=== PATIENT | male | born 1980 | race Caucasian/White ===

== ENCOUNTER 2025-03-14 06:43 | Day surgery (SDC) | payer OTHER, SELFPAY ==
--- NOTE | 2025-03-14 | PATH_ITS ---
[facility] Accession Number: [id number] No. of containers..02 Tissue . 01 Material submitted: . PART A: colon - SIGMOID POLYP PART B: rectum - RECTAL POLYP . 01 Diagnosis: A. SIGMOID COLON POLYP: Tubular adenoma. . B. RECTAL POLYP: Hyperplastic polyp. MRV 03/28/2025 1316 Local . 01 Electronically signed: . Reggie Payne MD, PhD, Pathologist NPI- [id number] . 01 Gross description: . Received are two formalin-filled containers both labeled with the patient's name. . A. In a container labeled sigmoid polyp, are two fragments of norris, soft tissue and/or debris which range in size from 0.2 x 0.2 x 0.2 cm to 0.7 x 0.6 x 0.6 cm. The specimen is totally submitted in cassette A1. B. In a container labeled reactal polyp, is one fragment of norris, soft tissue which measures 0.6 x 0.6 x 0.5 cm. The specimen is totally submitted in cassette B1. ([id number]) /[facility] 03/23/2025 0933 Local . 01 Pathologist provided ICD-10: D12.5, K62.1 . 01 CPT . 671278, 006176 Specimen Comment: A courtesy copy of this report has been sent to [phone] Performed at: [address] [id number] MD Anders Crum MD Phone: [phone]
[2025-03-14 07:09] VITALS: BP 137/92; PULSE 91; RESP 16; TEMP 36.4; O2SAT 96
--- NOTE | 2025-03-14 07:38 | PM.HP.IH.1 ---
History of Present Illness History of Present Illness Date Patient Seen: 03/14/25 Time Patient Seen: 07:38 Chief complaint: SDC Narrative: Seth is a 44-year-old man here for his first screening colonoscopy. No family history of colon cancer. [facility] Medical History (Updated 03/14/25 @ 07:38 by Rudy Rodriguez MD) Snoring GERD (gastroesophageal reflux disease) Family history of melanoma Surgical History (Updated 06/20/23 @ 08:34 by Sonja Rosa MD) History of knee surgery History of hernia repair Social History marital status: number of children: 1 other: Moved from [place] 1-2 years ago. Smoking Status: Current some day smoker alcohol intake: current Meds Home Medications and Allergies Allergies Allergy/AdvReac Type Severity Reaction Status Date / Time No Known Drug Allergies Allergy Verified 03/14/25 07:07 Exam Vital Signs (past 8 hours): - 03/14/25 07:09 Temperature 97.5 F L Pulse Rate 91 H Respiratory Rate 16 Blood Pressure 137/92 H Pulse Oximetry 96 Oxygen Delivery Method Room Air Oxygen Delivery Method Room Air Const General: healthy appearing Assessment & Plan Assessment and plan (1) Colon cancer screening: Status: Acute Plan Colonoscopy Time-Based Coding :: [TOTAL MINUTES] spent with patient and on the chart (including review of chart, obtaining history, exam, reviewing outside data, placing orders, documenting exam and treatment plan, and counseling patient) on [DATE]. [employer] Document charge(s): No
[2025-03-14] MEDS: LACTATED RINGERS 1,000 ML 42 ML IV (07:46)
[2025-03-14 08:09] VITALS: BP 112/82; PULSE 99; RESP 16; TEMP 36.4; O2SAT 99
--- NOTE | 2025-03-14 08:09 | PM.OP.COLON ---
Operative Date/Time/Diagnoses Date of procedure: 03/14/25 Time of procedure: 08:09 Pre-op diagnosis: Colon cancer screening Post-op diagnosis: same Procedure & Clinicians Study performed: Colonoscopy Same procedure(s) as scheduled: Yes Surgeon: Rudy Rodriguez Anesthesia Type: MAC +/- Procedure Notes Procedure in detail: Surgeon: Rudy Rodriguez MD Anesthesia: Madison Brandy CLINICAL SUPERVISOR Procedure: The patient was brought to the endoscopy suite, placed in left lateral decubitus position. The patient was connected to monitoring devices. A time-out was performed. Sedation was administered. Once the patient was adequately sedated, a digital rectal exam was performed and was normal. The scope was then inserted and advanced to the cecum where the appendiceal orifice was identified and photographed. The scope was then slowly withdrawn over greater than 6 minutes. The mucosa was thoroughly inspected. There was 1 cm polyp in the sigmoid colon removed with a cold snare. There was a 5 mm polyp in the distal rectum removed with a cold snare. The scope was retroflexed in the rectum. No other abnormalities were found. The scope was straightened and removed. The patient was awakened and brought to recovery. Scope withdrawal time: 12 minutes Sedation time: 14 minutes EBL: 2 mL Findings: 1 cm sigmoid colon polyp and 5 mm rectal polyp Post-procedure Disposition: PACU
[2025-03-14 08:13] VITALS: BP 119/82; PULSE 94; RESP 13; O2SAT 99
[2025-03-14 08:17] VITALS: BP 132/86; PULSE 86; RESP 15; TEMP 36.1; O2SAT 98
[2025-03-14 08:27] VITALS: BP 140/86; PULSE 83; RESP 17; O2SAT 98
== END 2025-03-14 08:36 | disposition home or self-care (01) ==
PROVIDERS: PCP Family Medicine; Referring Provider Surgery; Visit Provider Surgery
PROC: 0DJD8ZZ Inspection of Lower Intestinal Tract, Via Natural or Artificial Opening Endoscopic (ICD-10-PCS; CPT 45378; principal; 2025-03-14 07:45)
DX: Z12.11 Encounter for screening for malignant neoplasm of colon (principal); Z72.0 Tobacco use; D12.5 Benign neoplasm of sigmoid colon; K62.1 Rectal polyp
CPT/HCPCS: 45385; J2704; J7120